=== PATIENT | male | born 2000 | race Caucasian/White ===

== ENCOUNTER 2022-02-12 22:07 | Inpatient (IN) ==
[2022-02-12 23:17] LABS: Basophils % 0.3 %; Eosinophils # 0.3 K/mcL (0.0-0.6); Eosinophils % 2.2 %; Hematocrit 47.9 % (37.5-50.1); Hemoglobin 16.4 g/dL (12.9-16.9); Immature Granulocytes % 0.2 % (0-4); Lymphocytes # 3.4 K/mcL (0.6-4.6); Lymphocytes % 27.1 %; Mean Corpuscular HGB Conc 34.2 g/dL (31.6-35.5); Mean Corpuscular Hemoglobin 31.8 pg (28.0-33.3); Mean Platelet Volume 10.1 fL (9.4-12.4); Monocytes # 1.1 K/mcL (0.0-1.3); Monocytes % 8.7 %; Neutrophils # 7.7 K/mcL (1.6-8.9); Platelet Count 226 K/mcL (140-400); Red Blood Count 5.15 M/mcL (4.19-5.50); Red Cell Distribution Width 13.7 % (11.5-14.5); Segmented Neutrophils % 61.5 %; White Blood Count 12.5 K/mcL (4.3-11.1)
[2022-02-12 23:35] LABS: Acetaminophen < 10 mcg/mL (10-20); BUN/Creatinine Ratio 16 (6-26); Blood Urea Nitrogen 15 mg/dL (6-20); Calcium 9.2 mg/dL (8.6-10.3); Carbon Dioxide 28 mEq/L (23-29); Chloride 103 mEq/L (98-107); Ethanol < 10 mg/dL (Less than 10); Glucose 80 mg/dL (70-105); Osmolality,Calculated 288 (280-300); Potassium 3.8 mEq/L (3.5-5.1); Salicylate < 2.5 mg/dL (15.0-30.0); Sodium 139 mEq/L (136-145)
[2022-02-13 00:39] LABS: Amphetamine Screen,Urine Negative ng/mL (Cutoff=1000); Barbiturate Screen,Urine Negative ng/mL (Cutoff=200); Benzodiazepines Screen,Urine Negative ng/mL (Cutoff=200); Cannabinoid Screen,Urine Positive ng/mL (Cutoff = 50); Cocaine Screen,Urine Negative ng/mL (Cutoff= 300); Opiate Screen,Urine Negative ng/mL (Cutoff=300); Phencyclidine Screen,Urine Negative ng/mL (Cutoff=25)
[2022-02-13 00:47] LABS: Bilirubin,Urine Negative (Negative); Blood,Urine Negative (Negative); Clarity,Urine Clear (Clear); Color,Urine Yellow (Yellow); Glucose,Urine (UA) Normal (Normal); Ketones,Urine Negative (Negative); Leukocyte Esterase,Urine Trace (Negative); Mucus,Urine Few per lpf (None-Few); Nitrite,Urine Negative (Negative); Protein,Urine Trace mg/dL (Neg-Trace); RBC,Urine 0-3 per hpf (0-3); Specific Gravity,Urine 1.026 (1.010-1.025); Urobilinogen,Urine Normal (Normal)
[2022-02-13 05:58] LABS: Influenza A PCR Negative (Negative); Influenza B PCR Negative (Negative); Resp. Syncytial Virus PCR Negative (Negative)
[2022-02-13 05:59] LABS: SARS-CoV-2 by PCR (In House) Negative (Negative)
[2022-02-13] MEDS ORDERED: traZODone 50 MG TABLET PO PRN (06:29)
[2022-02-13] MEDS ORDERED: Mag Hydrox/Al Hydrox/Simeth 30 ML UDC PO PRN (06:29)
[2022-02-13] MEDS ORDERED: Acetaminophen 325 MG TABLET PO PRN (06:29)
[2022-02-13] MEDS ORDERED: Ibuprofen 400 MG TABLET PO PRN (06:29)
[2022-02-13] MEDS ORDERED: Haloperidol Lactate 5 MG/ML VIAL IM PRN (06:29)
[2022-02-13] MEDS ORDERED: haloperidoL 5 MG TABLET PO PRN (06:29)
[2022-02-13] MEDS ORDERED: *HR* LORazepam 1 MG TABLET PO PRN (06:29)
[2022-02-13] MEDS ORDERED: MOM Conc 10 ML UD.LIQ PO PRN (06:29)
[2022-02-13] MEDS ORDERED: *HR* LORazepam 2 MG/ML VIAL IM PRN (06:29)
[2022-02-13] MEDS: hydrOXYzine pamoate 25 MG CAPSULE PO PRN (17:41)
[2022-02-13] MEDS: OLANZapine 5 MG TAB.RAPDIS PO SCH (20:49)
[2022-02-14] MEDS: hydrOXYzine pamoate 25 MG CAPSULE PO PRN (17:13)
[2022-02-14] MEDS: OLANZapine 5 MG TAB.RAPDIS PO SCH (21:36)
[2022-02-15] MEDS: hydrOXYzine pamoate 25 MG CAPSULE PO PRN (17:41)
[2022-02-15] MEDS: OLANZapine 5 MG TAB.RAPDIS PO SCH (21:36)
[2022-02-16] MEDS: hydrOXYzine pamoate 25 MG CAPSULE PO PRN ×2 (10:12→17:26)
[2022-02-16] MEDS: OLANZapine 5 MG TAB.RAPDIS PO SCH (21:35)
[2022-02-17] MEDS: hydrOXYzine pamoate 25 MG CAPSULE PO PRN ×2 (10:07→18:39)
[2022-02-17] MEDS: OLANZapine 5 MG TAB.RAPDIS PO SCH (20:33)
[2022-02-18 09:53] VITALS: TEMP 98.3
[2022-02-18] MEDS: hydrOXYzine pamoate 25 MG CAPSULE PO PRN ×3 (12:41→22:00)
[2022-02-18] MEDS: Nicotine 2 MG GUM BC PRN ×2 (20:10→22:01)
[2022-02-18] MEDS: OLANZapine 5 MG TAB.RAPDIS PO SCH (22:00)
[2022-02-19] MEDS: Nicotine 2 MG GUM BC PRN (08:48)
[2022-02-19 08:49] VITALS: BP 145/97; PULSE 97; O2SAT 99
[2022-02-19] MEDS: hydrOXYzine pamoate 25 MG CAPSULE PO PRN (08:49)
== END 2022-02-19 11:55 | disposition home or self-care (01) | DRG 751 ==
LOC: EMEROOARM 22:07 → 1ANU 02-13 06:16
PROVIDERS: ADMIT Psychiatry & Neurology Psychiatry; ATTEND Psychiatry & Neurology Psychiatry